=== PATIENT | male | born 1980 | race African-American/Black ===

== ENCOUNTER 2016-12-11 15:19 | Emergency (ER) | payer OTHER ==
--- NOTE | ~2016-12-11 | EKG ---
PATIENT: MARIIA GARCÍA UNIT #: [id number] Ventricular Rate: 79 BPM Atrial Rate: 79 BPM P-R Interval: 150 ms QRS Duration: 82 ms Q-T Interval: 378 ms QTC Calculation(Bezet): 433 ms P Kirwin: 68 degrees Calculated R Kirwin: 56 degrees Calculated T Kirwin: 32 degrees Diagnosis Line: Normal sinus rhythm with sinus arrhythmia Diagnosis Line: ST elevation, consider early repolarization Diagnosis Line: Borderline ECG Diagnosis Line: When compared with ECG of 04-JUN-2016 18:54, Diagnosis Line: No significant change was found Diagnosis Line: Confirmed by LISA MULLER MD ([id number]) on Diagnosis Line: 12/12/2016 6:49:22 AM INTERPRETING BENNETT FIGUEROA
--- NOTE | ~2016-12-11 | CR72 ---
[facility] A Service of [facility] RADIOLOGY TEXT RESULTS PATIENT: MARIIA GARCÍA LOCATION: [facility] : 79 UNIT #: [id number] AGE: [address]: Alen Herndon MD SEX: M ORDER DR: [id number] [facility] [address] [place], [place] [address] [id number] E MR#: [id number] Acc #: [id number] NAME: MARIIA GARCÍA : 1980 SEX: M STUDY DATE/TIME: 12/11/2016 16:13 UNIT: [facility] ROOM: STUDY DESCRIPTION: CR Chest Single View Portable Attending Physician: Alen Herndon M.D. Ordering Physician: Alen Herndon M.D. Primary Care Physician: Primary Care Physician No MEDICAL IMAGING REPORT This report is preliminary unless electronic signature is present EXAM Portable chest HISTORY 36-year-old male with chest pain, cough, and congestion for 2 days. COMPARISON 06/04/2016 FINDINGS A single AP portable view of the chest shows both lungs to be clear. The heart is normal in size. The mediastinal contour is normal. No significant bone abnormalities are seen. IMPRESSION Normal portable chest. Dictated by... Geo Romeo M.D. THIS IS AN ELECTRONICALLY VERIFIED REPORT Geo Romeo M.D. at 12/12/2016 10:05 AM NIRANJAN/luis TD: 12/11/2016 22:58 JOB #: [id number] MEDICAL IMAGING REPORT Page 1 of 1 COPY
--- NOTE | ~2016-12-11 | CT4 ---
[facility] A Service of [facility] RADIOLOGY TEXT RESULTS PATIENT: MARIIA GARCÍA LOCATION: [facility] : 78 UNIT #: [id number] AGE: [address]: Alen Herndon MD SEX: M ORDER DR: [id number] [place] [id number] [facility]. [place], [place] [address] [id number] MR#: [id number] Acc #: [id number] NAME: MARIIA GARCÍA : 1980 SEX: M STUDY DATE/TIME: 12/11/2016 16:44 UNIT: [facility] ROOM: STUDY DESCRIPTION: CT Abd and Pelv Wo Cont Attending Physician: Alen Herndon M.D. Ordering Physician: Alen Herndon M.D. Primary Care Physician: Primary Care Physician No MEDICAL IMAGING REPORT This report is preliminary unless electronic signature is present EXAM CT abdomen and pelvis without contrast HISTORY Abdomen pain and diarrhea, right lower quadrant pain for [address] abdomen and pelvis was performed without contrast. This CT exam was performed with one or more of the following radiation dose reduction techniques: Automatic exposure control, adjustment of mA and/or kV according to patient size, and iterative reconstruction. CT ABDOMEN: The liver, gallbladder, spleen, pancreas, kidneys, and adrenal glands are unremarkable. No renal calculi. No perinephric stranding. No bowel dilatation. No ascites. Normal caliber abdominal aorta. CT PELVIS: Normal appendix. No free fluid. No bowel dilatation. No inflammatory stranding. Urinary bladder is normal. IMPRESSION 1. Negative noncontrast CT abdomen and pelvis. 2. Normal appendix. 3. No urinary calculi or obstruction. Dictated by... Soto Davis M.D. THIS IS AN ELECTRONICALLY VERIFIED REPORT Soto Davis M.D. at 12/12/2016 2:34 PM DFL/psc [facility] A Service of [facility] RADIOLOGY TEXT RESULTS PATIENT: MARIIA GARCÍA LOCATION: [facility] : 79 UNIT #: [id number] AGE: [address]: Alen Herndon MD SEX: M ORDER DR: TD: 12/11/2016 23:13 JOB #: [id number] MEDICAL IMAGING REPORT Page 1 of 1 COPY
[~2016-12-11 15:19] MED LIST: DOXYCYCLINE PO; FLEXERIL10 MG PO; NO MEDICATIONS
[2016-12-11 15:57] LABS: BASOPHIL# 0.1 X10e3 (0-0.3); BASOPHIL% 0.8 % (0-2.5); EOSINOPHIL# 0.8 X10e3 (0-0.7); EOSINOPHIL% 8.3 % (0.0-7.0); HEMATOCRIT 45.5 % (38.0-50.0); HEMOGLOBIN 14.6 gm/dL (13.0-16.0); LYMPHOCYTE# 2.5 X10e3 (1.0-3.5); LYMPHOCYTE% 24.5 % (17.0-45.0); MEAN CELL VOLUME 84.6 FL (83-96); MEAN CORPUSCULAR HEMOGLOBIN 27.1 PG (28-34); MEAN PLATELET VOLUME 8.2 FL (6.5-11.5); MONOCYTE# 1.3 X10e3 (0-1.0); MONOCYTE% 12.9 % (3.0-12.0); NEUTROPHIL# 5.4 X10e3 (1.5-7.1); NEUTROPHIL% 53.5 % (40-75); PLATELET COUNT 364 X10e3 (140-420); RED BLOOD COUNT 5.37 X10e (3.90-5.60); RED CELL DISTRIBUTION WIDTH 15.3 % (11.0-15.5); WHITE BLOOD COUNT 10.1 X10e3 (4.0-10.5)
[2016-12-11 16:00] LABS: DIFF IND NO
[2016-12-11 16:19] LABS: POC - CKMB <1.0 ng/mL (0.0-7.9); POC - TROPONIN <0.05 ng/mL (<=0.05)
[2016-12-11 16:24] LABS: ALKALINE PHOSPHATASE 73 U/L (32-92); ALT (SGPT) 12 U/L (10-40); AMYLASE 47 U/L (0-46); AST (SGOT) 17 U/L (10-42); BILIRUBIN,TOTAL 0.4 mg/dL (0.2-2.0); BLOOD UREA NITROGEN 7 mg/dL (9-23); BUN/CREATININE RATIO 6.36; CALCIUM SERUM 9.4 mg/dL (8.4-10.2); CARBON DIOXIDE 26 mmol/L (22-31); CHLORIDE 105 mmol/L (100-111); CREATININE SERUM 1.1 mg/dL (0.6-1.4); GLOM FILT RATE Estimated 98.9 mL/min (>60); GLUCOSE FASTING 89 mg/dL (70-110); LIPASE 33 U/L (22-51); POTASSIUM 3.9 mmol/L (3.5-5.1); PROTEIN TOTAL SERUM 8.1 g/dL (6.0-8.3); SODIUM 137 mmol/L (135-145)
[2016-12-11 16:26] LABS: BILIRUBIN, DIRECT <0.1 mg/dL (0.0-0.2); BILIRUBIN,INDIRECT 0.3 mg/dL (0.0-0.9)
== END 2016-12-11 17:35 | disposition home or self-care (01) ==
LOC: CED 15:19
PROVIDERS: Emergency Medicine
DX: R10.31 Right lower quadrant pain (principal); R07.9 Chest pain, unspecified; R19.7 Diarrhea, unspecified; R11.2 Nausea with vomiting, unspecified
CPT/HCPCS: 36415; 71010; 74176; 80048; 80076; 82150; 82553; 83690; 84484; 85025; 85379; 93005; 96361; 96374; 96375; 99284; J1170; J2405

== ENCOUNTER 2017-01-24 19:00 | Inpatient (IN) | payer OTHER ==
[~2017-01-24] VITALS: Ht 165.1 cm; Wt 68.0 kg
--- NOTE | ~2017-01-24 | PN ---
Unit #: [id number] #: [id number] Patient: SACHIN GARCÍA [id number] [facility] [address] [place] [address] [id number] I MR#: [id number] NAME: SACHIN GARCÍA ROOM: P182 Age: 36 Sex: M Admission Date: 01/24/2017 : 1980 Attending Physician: Derrick Gonzales M.D. Admitting Physician: Derrick Gonzales M.D. Primary Care Physician: Primary Care Physician Michelle REDDY PROGRESS NOTES DATE OF SERVICE 01/27/2017 DISCUSSION Sachin continues to be somewhat isolative but has begun to attend a few groups and activities. His mood is depressed with downcast affect. He is alert and fully oriented with no psychosis. He does continue to (1)____ suicidal ideation. ASSESSMENT Major depression. PLAN Continue introduction of medications and current treatment plan. Dictated by... Lesa Mari/ashely TD: 01/29/2017 03:53 JOB #: [id number] [facility] PROGRESS NOTES Page 1 of 1 X Derrick Gonzales MD PROGRESS NOTE
--- NOTE | ~2017-01-24 | PN ---
Unit #: [id number] #: [id number] Patient: SACHIN GARCÍA [id number] [facility] [address] [place] [address] [id number] I MR#: [id number] NAME: SACHIN GARCÍA ROOM: 82 Age: 36 Sex: M Admission Date: 01/24/2017 : 1980 Attending Physician: Derrick Gonzales M.D. Admitting Physician: Derrick Gonzales M.D. Primary Care Physician: Primary Care Physician Michelle REDDY PROGRESS NOTES DATE 01/26/2017 DISCUSSION Sachin continues to express a depressed mood with a downcast affect. He is alert and fully oriented. His memory and concentration are [id number]. His thought processes are goal-directed with no active psychosis. He still does ruminate on suicidal ideation and just started his medication today. He also complains of increased hunger. ASSESSMENT Major depression, alcohol dependence. PLAN Continue current treatment plan and provide larger portion meals as requested. Dictated by... Lesa Mari/grant TD: 01/28/2017 10:45 JOB #: [id number] [facility] PROGRESS NOTES Page 1 of 1 X Derrick Gonzales MD PROGRESS NOTE
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
[2017-01-26 12:29] LABS: BASOPHIL% 0.6 % (0-2.5); EOSINOPHIL# 0.7 X10e3 (0-0.7); EOSINOPHIL% 9.2 % (0.0-7.0); HEMATOCRIT 39.5 % (38.0-50.0); HEMOGLOBIN 12.8 gm/dL (13.0-16.0); LYMPHOCYTE# 1.4 X10e3 (1.0-3.5); LYMPHOCYTE% 18.3 % (17.0-45.0); MEAN CELL VOLUME 83.9 FL (83-96); MEAN CORPUSCULAR HEMOGLOBIN 27.3 PG (28-34); MEAN CORPUSCULAR HGB CONC 32.5 g/dL (30-36); MEAN PLATELET VOLUME 8.1 FL (6.5-11.5); MONOCYTE# 0.8 X10e3 (0-1.0); MONOCYTE% 10.3 % (3.0-12.0); NEUTROPHIL# 4.7 X10e3 (1.5-7.1); NEUTROPHIL% 61.6 % (40-75); PLATELET COUNT 424 X10e3 (140-420); WHITE BLOOD COUNT 7.7 X10e3 (4.0-10.5)
[2017-01-26 12:32] LABS: DIFF IND NO
[2017-01-26 12:41] LABS: ALBUMIN SERUM 3.3 g/dL (3.5-5.0); BILIRUBIN,TOTAL 0.4 mg/dL (0.2-2.0); CALCIUM SERUM 9.2 mg/dL (8.4-10.2); POTASSIUM 4.6 mmol/L (3.5-5.1); PROTEIN TOTAL SERUM 6.9 g/dL (6.0-8.3)
[2017-01-28 09:35] LABS: URINE APPEARANCE CLEAR; URINE BILIRUBIN NEG (NEG); URINE BLOOD NEG (NEG); URINE COLOR YELLOW; URINE GLUCOSE NEG (NEG); URINE KETONE NEG (NEG); URINE LEUKOCYTE ESTERASE NEG (NEG); URINE NITRATE NEG (NEG); URINE PROTEIN NEG (NEG); URINE UROBILINOGEN 0.2 MG/DL (NEG)
[2017-01-28 09:46] LABS: CULTURE INDICATED? NO
[2017-01-28 10:20] LABS: AMPHETAMINE NEG (NEG); BARBITURATES NEG (NEG); BENZODIAZEPINES POS (NEG); COCAINE NEG (NEG); MARIJUANA NEG (NEG); OPIATES NEG (NEG); TRICYCLIC ANTIDEPRESSANTS NEG (NEG); U METHADONE NEG (NEG)
== END 2017-01-29 12:30 | disposition home or self-care (01) | DRG 897 ==
LOC: P1E 22:08
PROVIDERS: Psychiatry & Neurology Psychiatry
PROC: HZ2ZZZZ Detoxification Services for Substance Abuse Treatment (ICD-10-PCS; principal; 2017-01-24)
DX: F10.20 Alcohol dependence, uncomplicated (principal); R45.851 Suicidal ideations; F32.9 Major depressive disorder, single episode, unspecified; F17.210 Nicotine dependence, cigarettes, uncomplicated
CPT/HCPCS: 80053; 80307; 81003; 85025; J2550